=== PATIENT | male | born 1990 | race Caucasian/White ===

== ENCOUNTER → 2017-03-19 | Outpatient (CLI) | payer BC ==
[~2017-03-19] MED LIST: ACET325T14 PO; DIAZ5TAB PO; DOCU-30 PO; HYDR1TAB12 PO; LEVE500V6 PO; METH4TAB PO; NICO1PAT4 TD; OLAN5TAB9 PO; OXYC5TAB3 PO; POLY17PO5 PO; PREG200C PO; SENN1TAB7 PO
== END | disposition home or self-care (01) ==
LOC: RAD 15:06
PROVIDERS: ATTEND Neurological Surgery
DX: M41.85 Other forms of scoliosis, thoracolumbar region (principal)
CPT/HCPCS: 72082

== ENCOUNTER 2017-05-15 15:46 | Observation (INO) | payer BC, MEDICAID ==
[~2017-05-15] VITALS: Ht 152.4 cm; Wt 89.9 kg
[2017-05-15] MEDS ORDERED: LORazepam 1MG TABLET PO ONE (16:00)
[2017-05-15 16:40] LABS: BLOOD UREA NITROGEN 11 mg/dL (7-18)
[2017-05-15 16:41] LABS: ACETAMINOPHEN < 2 mcg/mL (10-30)
[2017-05-15] MEDS ORDERED: LORazepam 1MG TABLET ONE (16:42)
[2017-05-15 18:21] LABS: DAU SCREEN DISCLAIMER
[2017-05-15] MEDS ORDERED: ACETAMINOPHEN 325 MG TABLET PO PRN (21:30)
[2017-05-15] MEDS ORDERED: BISACODYL 10 MG SUPP PR PRN (21:30)
[2017-05-15] MEDS ORDERED: DOCUSATE 100 MG CAPSULE PO PRN (21:30)
[2017-05-15] MEDS ORDERED: POLYETHYLENE GLYCOL 17 GM PACKET PO PRN (21:30)
[2017-05-15] MEDS ORDERED: LEVETIRACETAM 500 MG TABLET PO SCH (21:30)
[2017-05-15 21:54] VITALS: BP 136/88
[2017-05-15] MEDS: OXYcodone IR 5MG TABLET PO PRN (22:13)
[2017-05-15] MEDS: PREGABALIN 200 MG CAPSULE PO SCH (22:28)
[2017-05-15] MEDS ORDERED: LEVETIRACETAM 500 MG TABLET PO ONE (23:00)
[2017-05-15] MEDS: DIAZEPAM 5 MG TABLET PO PRN (23:35)
[2017-05-16] MEDS: LORazepam 1MG TABLET PO PRN ×3 (00:49→17:16)
[2017-05-16] MEDS: PREGABALIN 200 MG CAPSULE PO SCH ×3 (07:57→20:10)
[2017-05-16] MEDS: LEVETIRACETAM 500 MG TABLET PO SCH ×2 (07:57→20:10)
[2017-05-16 08:22] VITALS: BP 129/84
[2017-05-16] MEDS: OXYcodone IR 5MG TABLET PO PRN ×2 (13:41→20:11)
[2017-05-16] MEDS ORDERED: FENTANYL 12 MCG PATCH TD SCH (14:00)
[2017-05-16] MEDS: DIAZEPAM 5 MG TABLET PO PRN (15:47)
[2017-05-16 19:42] VITALS: BP 123/85
[2017-05-19] MEDS ORDERED: FENTANYL REMOVE PATCH NOTE XX SCH (14:00)
== END 2017-05-16 22:30 ==
LOC: ED 18:47 → INTOOBSV 19:53 → EDIP 19:53 → 3E 21:37
PROVIDERS: ADMIT Internal Medicine; ATTEND Internal Medicine
DX: R45.851 Suicidal ideations (principal); F32.9 Major depressive disorder, single episode, unspecified; G40.909 Epilepsy, unspecified, not intractable, without status epilepticus; M54.9 Dorsalgia, unspecified; G89.29 Other chronic pain; E29.1 Testicular hypofunction; M79.7 Fibromyalgia; K21.9 Gastro-esophageal reflux disease without esophagitis; G43.909 Migraine, unspecified, not intractable, without status migrainosus; Z91.5 Personal history of self-harm; Z85.841 Personal history of malignant neoplasm of brain
CPT/HCPCS: 36415; 80048; 80307; 80329; 81003; 82040; 84439; 84443; 85025; 99285; G0378; G0480

== ENCOUNTER 2017-11-25 18:03 | Inpatient (IN) | payer MEDICAID ==
[~2017-11-25] VITALS: Ht 182.9 cm; Wt 83.7 kg
[~2017-11-25 18:03] MED LIST changes: +DOCU-131 PO; -DOCU-30 PO; +NICO-486 TD; -NICO1PAT4 TD
[2017-11-25 19:12] LABS: BASOPHILS # (AUTO) 0.03 x10^3/uL (0-0.1); BASOPHILS % (AUTO) 0 % (0-1); EOSINOPHILS # (AUTO) 0.26 x10^3/uL (0-0.4); EOSINOPHILS % (AUTO) 4 % (1-7); LYMPHOCYTES # (AUTO) 2.81 x10^3/uL (1-3.4); LYMPHOCYTES % (AUTO) 42 % (22-44); MD NO; MEAN CORPUSCULAR HEMOGLOBIN 29.8 pg (27.5-34.5); MEAN CORPUSCULAR HGB CONC 33.2 g/dL (33.2-36.2); MEAN CORPUSCULAR VOLUME 89.6 fL (81-97); MEAN PLATELET VOLUME 10.3 fL (7.4-10.4); MONOCYTES % (AUTO) 9 % (2-9); NEUTROPHILS # (AUTO) 3.05 x10^3/uL (1.8-6.8); NEUTROPHILS % (AUTO) 45 % (42-75); PLATELET COUNT 256 x10^3/uL (130-400); RED BLOOD COUNT 5.24 x10^6/uL (4.38-5.82)
[2017-11-25 19:19] LABS: ALANINE AMINOTRANSFERASE 25 U/L (12-78); ALBUMIN 4.5 g/dL (3.4-5.0); ANION GAP 8 mmol/L (5-15); CALCIUM 9.2 mg/dL (8.5-10.1); CHLORIDE 106 mmol/L (98-107); CREATININE 1.09 mg/dL (0.7-1.3)
[2017-11-25 19:21] LABS: ALKALINE PHOSPHATASE 81 U/L (45-117); BILIRUBIN,TOTAL 0.8 mg/dL (0.2-1.0); TOTAL PROTEIN 7.8 g/dL (6.4-8.2)
[2017-11-25] MEDS ORDERED: SODIUM CHLORIDE 0.9% 1,000 ML IV ONE (21:11)
[2017-11-25] MEDS ORDERED: SODIUM CHLORIDE FLUSH 10ML SYR IVF PRN (21:30)
[2017-11-25] MEDS ORDERED: ONDANSETRON 2MG/ML, 2ML IVPush PRN ×2 (21:30→23:00)
[2017-11-25] MEDS ORDERED: POLYETHYLENE GLYCOL 17 GM PACKET PO PRN (23:00)
[2017-11-25] MEDS ORDERED: ENALAPRILAT 1.25 MG/ML, 2ML IVPush PRN (23:00)
[2017-11-25] MEDS ORDERED: morphine SULFATE 10 MG/ML, 1ML IVPush PRN (23:00)
[2017-11-25] MEDS ORDERED: ACETAMINOPHEN 325 MG TABLET PO PRN ×2 (23:00→23:30)
[2017-11-25] MEDS ORDERED: hydrALAzine 20 MG/ML, 1ML IVPush PRN (23:00)
[2017-11-25] MEDS ORDERED: DOCUSATE 100 MG CAPSULE PO PRN (23:00)
[2017-11-25] MEDS ORDERED: LEVO50TA5 PO (23:05)
[2017-11-25] MEDS ORDERED: ONDA4TAB10 PO (23:05)
[2017-11-25] MEDS ORDERED: FLUO20CA19 PO (23:05)
[2017-11-25] MEDS ORDERED: TAMS-11 PO (23:05)
[2017-11-25] MEDS ORDERED: TRAZ50TA18 PO (23:05)
[2017-11-25] MEDS ORDERED: GABA300C10 PO (23:05)
[2017-11-25] MEDS ORDERED: LEVE100020 PO (23:05)
[2017-11-25] MEDS ORDERED: OXYC15TA PO (23:05)
[2017-11-25] MEDS ORDERED: ZOLP10TA PO (23:05)
[2017-11-25] MEDS ORDERED: RANI150T8 PO (23:05)
[2017-11-25] MEDS ORDERED: MELO7.5T5 PO (23:05)
[2017-11-25] MEDS ORDERED: TEMPLATE NON-FORMULARY MED. (Oxycodone Hcl** 10 MG) PO SCH (23:30)
[2017-11-25 23:38] LABS: HEMOGLOBIN A1C 5.2 % (4.2-6.3)
[2017-11-25 23:39] LABS: FREE T4 (FREE THYROXINE) 1.03 ng/dL (0.76-1.46); THYROID STIMULATING HORMONE 2.16 mIU/L (0.358-3.740)
[2017-11-25] MEDS: SODIUM CHLORIDE 0.9% 1,000 ML IV SCH (23:55)
[2017-11-26] MEDS: OXYcodone IR 5MG TABLET PO SCH ×4 (00:24→21:49)
[2017-11-26] MEDS: LEVETIRACETAM 500 MG TABLET PO SCH ×3 (00:24→21:49)
[2017-11-26] MEDS: GABAPENTIN 300 MG CAPSULE PO SCH ×4 (00:24→21:49)
[2017-11-26] MEDS: TRAZODONE 50MG TABLET PO SCH ×2 (01:17→21:49)
[2017-11-26] MEDS: ZOLPIDEM 10MG TABLET PO PRN ×2 (01:18→21:54)
[2017-11-26 01:59] VITALS: BP 115/67
[2017-11-26] MEDS: ONDANSETRON ODT 4 MG PO SCH ×4 (02:55→21:49)
[2017-11-26 03:02] LABS: MICROSCOPIC NOT IND
[2017-11-26 03:07] LABS: CULTURE INDICATED? NO
[2017-11-26 05:08] LABS: BASOPHILS # (AUTO) 0.03 x10^3/uL (0-0.1); BASOPHILS % (AUTO) 1 % (0-1); EOSINOPHILS % (AUTO) 4 % (1-7); LYMPHOCYTES # (AUTO) 2.75 x10^3/uL (1-3.4); LYMPHOCYTES % (AUTO) 54 % (22-44); MD NO; MEAN CORPUSCULAR HGB CONC 33.7 g/dL (33.2-36.2); MEAN CORPUSCULAR VOLUME 88.9 fL (81-97); MEAN PLATELET VOLUME 10.3 fL (7.4-10.4); MONOCYTES # (AUTO) 0.51 x10^3/uL (0.2-0.8); MONOCYTES % (AUTO) 10 % (2-9); NEUTROPHILS % (AUTO) 32 % (42-75); PLATELET COUNT 208 x10^3/uL (130-400); RED BLOOD COUNT 4.36 x10^6/uL (4.38-5.82); RED CELL DISTRIBUTION WIDTH 14.2 % (9.4-14.8)
[2017-11-26 05:21] LABS: CHLORIDE 109 mmol/L (98-107)
[2017-11-26 05:29] LABS: ALANINE AMINOTRANSFERASE 14 U/L (12-78); ALBUMIN 3.4 g/dL (3.4-5.0); ALKALINE PHOSPHATASE 67 U/L (45-117); ANION GAP 4 mmol/L (5-15); BILIRUBIN,TOTAL 0.4 mg/dL (0.2-1.0); CHOL/HDL RATIO 5.5; CHOLESTEROL, TOTAL 199 mg/dL (140-239); CREATININE 1.01 mg/dL (0.7-1.3); HDL CHOL % 18 % (26-37); HDL CHOLESTEROL (DIRECT) 36 mg/dL (40-60); LDL CHOLESTEROL,CALCULATED 139 mg/dL (54-169); LDL/HDL RATIO 3.9 (0.5-3.0); TOTAL PROTEIN 5.8 g/dL (6.4-8.2); TRIGLYCERIDES 122 mg/dL (50-200); VLDL CHOLESTEROL 24 mg/dL (0-25)
[2017-11-26 07:38] VITALS: BP 103/62
[2017-11-26] MEDS: SENNA/DOCUSATE TABLET PO SCH (08:09)
[2017-11-26] MEDS: MELOXICAM 15 MG TABLET PO SCH (08:10)
[2017-11-26] MEDS: TAMSULOSIN 0.4 MG CAP.ER.24H PO SCH (08:10)
[2017-11-26] MEDS: FLUOXETINE 20 MG CAPSULE PO SCH (08:10)
[2017-11-26] MEDS: LEVOTHYROXINE 50 MCG TABLET PO SCH (08:10)
[2017-11-26] MEDS ORDERED: OXYcodone IR 5MG TABLET PO SCH ×2 (09:00)
[2017-11-26] MEDS ORDERED: TRAZODONE 50MG TABLET PO SCH (09:00)
[2017-11-26] MEDS ORDERED: TEMPLATE NON-FORMULARY MED. (Levetiracetam** (Keppra**) 1,000 MG) PO SCH (09:00)
[2017-11-26] MEDS: SODIUM CHLORIDE 0.9% 1,000 ML IV SCH (10:13)
[2017-11-26 13:58] VITALS: BP 101/53
[2017-11-26] MEDS ORDERED: POTASSIUM CHLORIDE 20 MEQ TAB.ER.PRT PO ONE (16:00)
[2017-11-26 19:12] VITALS: BP 117/66
[2017-11-27 01:30] VITALS: BP 121/64
[2017-11-27] MEDS: ONDANSETRON ODT 4 MG PO SCH ×3 (03:00→16:34)
[2017-11-27 05:39] LABS: CHLORIDE 107 mmol/L (98-107)
[2017-11-27 05:46] LABS: ANION GAP 7 mmol/L (5-15)
[2017-11-27 08:00] VITALS: BP 118/67
[2017-11-27] MEDS: SENNA/DOCUSATE TABLET PO SCH (09:00)
[2017-11-27] MEDS: LEVETIRACETAM 500 MG TABLET PO SCH (11:05)
[2017-11-27] MEDS: GABAPENTIN 300 MG CAPSULE PO SCH ×2 (11:05→16:34)
[2017-11-27] MEDS: FLUOXETINE 20 MG CAPSULE PO SCH (11:05)
[2017-11-27] MEDS: TAMSULOSIN 0.4 MG CAP.ER.24H PO SCH (11:05)
[2017-11-27] MEDS: LEVOTHYROXINE 50 MCG TABLET PO SCH (11:06)
[2017-11-27] MEDS: OXYcodone IR 5MG TABLET PO SCH ×2 (11:06→16:00)
[2017-11-27] MEDS: MELOXICAM 15 MG TABLET PO SCH (11:07)
[2017-11-27 14:29] VITALS: BP 123/70
[2017-11-27] MEDS ORDERED: OXYcodone IR 5MG TABLET PO SCH (18:00)
== END 2017-11-27 18:45 | disposition home or self-care (01) | DRG 897 ==
LOC: ED 22:30 → EDIP 23:00 → 3NE 23:30
PROVIDERS: ADMIT Internal Medicine; ATTEND Internal Medicine
DX: F13.239 Sedative, hypnotic or anxiolytic dependence with withdrawal, unspecified (principal); R45.851 Suicidal ideations; G40.909 Epilepsy, unspecified, not intractable, without status epilepticus; E03.9 Hypothyroidism, unspecified; G89.29 Other chronic pain; M54.9 Dorsalgia, unspecified; M79.7 Fibromyalgia; K21.9 Gastro-esophageal reflux disease without esophagitis; G43.909 Migraine, unspecified, not intractable, without status migrainosus; F32.9 Major depressive disorder, single episode, unspecified; N40.0 Benign prostatic hyperplasia without lower urinary tract symptoms; Z88.8 Allergy status to other drugs, medicaments and biological substances
CPT/HCPCS: 36415; 80048; 80053; 80061; 81003; 83036; 83735; 84439; 84443; 85025; 99285; Q0162; J2270; J7030

== ENCOUNTER 2018-04-04 19:39 | Inpatient (IN) | payer MEDICAID ==
[~2018-04-04] VITALS: Ht 177.8 cm; Wt 76.5 kg
[~2018-04-04 19:39] MED LIST changes: +ACID1GRA3 PO; +FLUO20CA19 PO; +GABA300C10 PO; +LEVE100020 PO; +LEVO50TA5 PO; +MELO7.5T5 PO; +OMEP20TA62 PO; +ONDA4TAB10 PO; +OXYC15TA PO; +RANI150T23 PO; +TAMS-11 PO; +TRAZ50TA18 PO; +VALP250C PO; +ZOLP10TA PO
[2018-04-04] MEDS ORDERED: SODIUM CHLORIDE FLUSH 10ML SYR IVF ONE (20:00)
[2018-04-04] MEDS ORDERED: PLEASE ENTER HEIGHT AND WEIGHT MC SCH (20:00)
[2018-04-04] MEDS ORDERED: SODIUM CHLORIDE 0.9% 1,000ML IVBOLUS ONE ×3 (20:00→21:30)
[2018-04-04] MEDS ORDERED: LORazepam 2 MG/ML, 1ML IVPush ONE ×3 (20:00→22:00)
[2018-04-04 20:15] LABS: MEAN CORPUSCULAR HEMOGLOBIN 29.9 pg (27.5-34.5); MEAN CORPUSCULAR HGB CONC 32.8 g/dL (33.2-36.2); MEAN PLATELET VOLUME 10.4 fL (7.4-10.4); PLATELET COUNT 277 x10^3/uL (130-400); RED BLOOD COUNT 4.54 x10^6/uL (4.38-5.82); RED CELL DISTRIBUTION WIDTH 14.5 % (9.4-14.8)
[2018-04-04 20:23] LABS: ALBUMIN 3.7 g/dL (3.4-5.0); ANION GAP 28 mmol/L (5-15); CALCIUM 8.9 mg/dL (8.5-10.1); CHLORIDE 109 mmol/L (98-107)
[2018-04-04 20:27] LABS: ALANINE AMINOTRANSFERASE 25 U/L (12-78); ALKALINE PHOSPHATASE 110 U/L (45-117); BILIRUBIN,TOTAL 0.2 mg/dL (0.2-1.0); CREATINE KINASE, TOTAL 82 U/L (39-308); CREATININE 1.77 mg/dL (0.7-1.3); SALICYLATE LEVEL 2.2 mg/dL (2.8-20.0); TOTAL PROTEIN 6.9 g/dL (6.4-8.2)
[2018-04-04 20:32] LABS: ACETAMINOPHEN < 2 mcg/mL (10-30)
[2018-04-04 20:49] LABS: MD YES
[2018-04-04 20:50] LABS: <RBC MORPHOLOGY> NORMAL; BAND#(MANUAL) 0.68 x10^3/uL; BANDS%(MANUAL) 3 % (0-7); EOS#(MANUAL) 0.45 x10^3/uL (0.0-0.4); EOS% (MANUAL) 2 % (1-7); LYMPH#(MANUAL) 2.71 x10^3/uL (1-3.4); LYMPHS% (MANUAL) 12 % (22-44); MONOS#(MANUAL) 1.13 x10^3/uL (0.3-2.7); MONOS% (MANUAL) 5 % (2-9); SEG#(MANUAL) 17.63 x10^3/uL (1.8-6.8); SEGS% (MANUAL) 78 % (42-75)
[2018-04-04 20:51] LABS: <PLATELET ESTIMATE> ADEQUATE; <PLT MORPHOLOGY> NORMAL PLT MORPH
[2018-04-04] MEDS ORDERED: LORazepam 2 MG/ML, 1ML ONE (21:42)
[2018-04-04 21:47] LABS: AMPHETAMINE SCREEN, URINE Negative (Negative); BARBITURATE SCREEN, URINE Negative (Negative); BENZODIAZEPINE SCREEN, URINE Negative (Negative); CANNABINOID SCREEN, URINE Negative (Negative); COCAINE SCREEN, URINE Negative (Negative); METHADONE SCREEN, URINE Negative (Negative); OPIATE SCREEN, URINE Negative (Negative)
[2018-04-04] MEDS: LORazepam 2 MG/ML, 1ML IVPush ONE ×2 (22:00→22:29)
[2018-04-04] MEDS ORDERED: VALPROATE SODIUM 1,500 MG in SODIUM CHLORIDE 0.9% 100 ML IV ONE (22:00)
[2018-04-05] MEDS ORDERED: VALP250C PO (00:12)
[2018-04-05] MEDS ORDERED: FLOMAX (00:12)
[2018-04-05] MEDS ORDERED: ONDANSETRON 2MG/ML, 2ML IV PRN (01:00)
[2018-04-05] MEDS: HEPARIN 5,000 UNITS/ML, 1ML SQ SCH ×3 (01:00→21:47)
[2018-04-05] MEDS ORDERED: DOCUSATE 100 MG CAPSULE PO PRN (01:00)
[2018-04-05] MEDS ORDERED: LORazepam 2 MG/ML, 1ML ONE (01:06)
[2018-04-05] MEDS: LORazepam 2 MG/ML, 1ML IV PRN ×2 (01:11→05:37)
[2018-04-05] MEDS: D5%-0.45NACL+KCL 20MEQ 1,000 ML IV SCH ×2 (02:35→13:27)
[2018-04-05 04:15] VITALS: BP 109/48
[2018-04-05 04:19] VITALS: BP 109/48
[2018-04-05 04:42] LABS: MEAN CORPUSCULAR HEMOGLOBIN 29.8 pg (27.5-34.5); MEAN CORPUSCULAR HGB CONC 33.5 g/dL (33.2-36.2); MEAN PLATELET VOLUME 9.9 fL (7.4-10.4); PLATELET COUNT 177 x10^3/uL (130-400); RED BLOOD COUNT 3.89 x10^6/uL (4.38-5.82); RED CELL DISTRIBUTION WIDTH 14.6 % (9.4-14.8)
[2018-04-05 04:51] LABS: ALBUMIN 2.9 g/dL (3.4-5.0); ANION GAP 8 mmol/L (5-15); CALCIUM 7.2 mg/dL (8.5-10.1); CHLORIDE 117 mmol/L (98-107)
[2018-04-05 04:55] LABS: MD YES
[2018-04-05 04:57] LABS: ALANINE AMINOTRANSFERASE 20 U/L (12-78); ALKALINE PHOSPHATASE 77 U/L (45-117); BAND#(MANUAL) 0.12 x10^3/uL; BANDS%(MANUAL) 1 % (0-7); BASOS#(MANUAL) 0.12 x10^3/uL (0-0.1); BASOS% (MANUAL) 1 % (0-1); BILIRUBIN,TOTAL 0.7 mg/dL (0.2-1.0); CREATINE KINASE, TOTAL 244 U/L (39-308); CREATININE 1.05 mg/dL (0.7-1.3); EOS#(MANUAL) 0.12 x10^3/uL (0.0-0.4); EOS% (MANUAL) 1 % (1-7); LYMPHS% (MANUAL) 21 % (22-44); MONOS#(MANUAL) 0.74 x10^3/uL (0.3-2.7); MONOS% (MANUAL) 6 % (2-9); SEG#(MANUAL) 8.68 x10^3/uL (1.8-6.8); SEGS% (MANUAL) 70 % (42-75); TOTAL PROTEIN 5.6 g/dL (6.4-8.2)
[2018-04-05 04:58] LABS: <PLATELET ESTIMATE> ADEQUATE; <PLT MORPHOLOGY> NORMAL PLT MORPH; <RBC MORPHOLOGY> NORMAL
[2018-04-05] MEDS ORDERED: POTASSIUM CHLORIDE 40 MEQ in SODIUM CHLORIDE 0.9% 500 ML IV ONE (05:30)
[2018-04-05] MEDS ORDERED: LORazepam 2 MG/ML, 1ML IVPush PRN (06:00)
[2018-04-05 10:19] LABS: MICROSCOPIC INDICATED
[2018-04-05 10:24] LABS: CULTURE INDICATED? NO
[2018-04-05] MEDS ORDERED: SUMATRIPTAN 100 MG TABLET PO PRN (13:00)
[2018-04-05] MEDS: TAMSULOSIN 0.4 MG CAP.ER.24H PO SCH (13:20)
[2018-04-05] MEDS: LAMOTRIGINE 25 MG TABLET PO SCH ×2 (13:20→21:48)
[2018-04-05] MEDS: OXYcodone IR 5MG TABLET PO PRN ×2 (13:21→22:00)
[2018-04-05] MEDS: GABAPENTIN 300 MG CAPSULE PO SCH ×2 (16:39→21:47)
[2018-04-05 20:31] VITALS: BP 120/77
[2018-04-05] MEDS ORDERED: LAMOTRIGINE 25 MG TABLET PO SCH (21:00)
[2018-04-05] MEDS: VALPROIC ACID 250 MG CAPSULE PO SCH (21:47)
[2018-04-06] MEDS: D5%-0.45NACL+KCL 20MEQ 1,000 ML IV SCH ×3 (00:58→20:11)
[2018-04-06 01:35] VITALS: BP 111/61
[2018-04-06] MEDS: HEPARIN 5,000 UNITS/ML, 1ML SQ SCH ×3 (05:08→20:12)
[2018-04-06] MEDS: LEVOTHYROXINE 50 MCG TABLET PO SCH (05:08)
[2018-04-06] MEDS: OXYcodone IR 5MG TABLET PO PRN ×4 (05:17→23:59)
[2018-04-06 05:18] LABS: ALANINE AMINOTRANSFERASE 19 U/L (12-78); ALBUMIN 2.7 g/dL (3.4-5.0); ANION GAP 6 mmol/L (5-15); CALCIUM 7.8 mg/dL (8.5-10.1); CHLORIDE 112 mmol/L (98-107); CREATININE 0.66 mg/dL (0.7-1.3)
[2018-04-06 05:25] LABS: BASOPHILS # (AUTO) 0.02 x10^3/uL (0-0.1); BASOPHILS % (AUTO) 0 % (0-1); EOSINOPHILS # (AUTO) 0.09 x10^3/uL (0-0.4); EOSINOPHILS % (AUTO) 1 % (1-7); LYMPHOCYTES # (AUTO) 1.89 x10^3/uL (1-3.4); LYMPHOCYTES % (AUTO) 28 % (22-44); MD NO; MEAN CORPUSCULAR HEMOGLOBIN 30.5 pg (27.5-34.5); MEAN CORPUSCULAR VOLUME 89.8 fL (81-97); MEAN PLATELET VOLUME 10.3 fL (7.4-10.4); MONOCYTES % (AUTO) 7 % (2-9); NEUTROPHILS # (AUTO) 4.34 x10^3/uL (1.8-6.8); NEUTROPHILS % (AUTO) 64 % (42-75); PLATELET COUNT 148 x10^3/uL (130-400); RED BLOOD COUNT 3.52 x10^6/uL (4.38-5.82)
[2018-04-06 05:52] LABS: ALKALINE PHOSPHATASE 74 U/L (45-117); BILIRUBIN,TOTAL 0.2 mg/dL (0.2-1.0); THYROID STIMULATING HORMONE 0.117 mIU/L (0.358-3.740); TOTAL PROTEIN 5.4 g/dL (6.4-8.2)
[2018-04-06 07:14] VITALS: BP_SYST 120; BP_SYST 97; BP_DIAS 68; BP_DIAS 73
[2018-04-06] MEDS: LAMOTRIGINE 25 MG TABLET PO SCH ×2 (08:16→20:11)
[2018-04-06] MEDS: FLUOXETINE HCL 20 MG CAPSULE PO SCH (08:16)
[2018-04-06] MEDS: TAMSULOSIN 0.4 MG CAP.ER.24H PO SCH (08:16)
[2018-04-06] MEDS: VALPROIC ACID 250 MG CAPSULE PO SCH ×2 (08:16→20:11)
[2018-04-06] MEDS: OMEPRAZOLE 20 MG CAPSULE.DR PO SCH (08:16)
[2018-04-06] MEDS: GABAPENTIN 300 MG CAPSULE PO SCH ×3 (08:16→20:11)
[2018-04-06] MEDS ORDERED: GADOBUTROL 10 MMOL/10 ML VIAL ONE (10:44)
[2018-04-06] MEDS ORDERED: OXYcodone 5 MG/5 ML ORAL.SOL UDC ONE (11:28)
[2018-04-06 13:44] VITALS: BP 121/70
[2018-04-06 20:58] VITALS: BP 126/73
[2018-04-07 00:20] VITALS: BP 118/70
[2018-04-07] MEDS: LEVOTHYROXINE 50 MCG TABLET PO SCH (05:08)
[2018-04-07] MEDS: D5%-0.45NACL+KCL 20MEQ 1,000 ML IV SCH ×2 (05:08→14:00)
[2018-04-07] MEDS: HEPARIN 5,000 UNITS/ML, 1ML SQ SCH ×2 (05:08→13:07)
[2018-04-07 05:26] LABS: BASOPHILS # (AUTO) 0.05 x10^3/uL (0-0.1); BASOPHILS % (AUTO) 1 % (0-1); EOSINOPHILS # (AUTO) 0.18 x10^3/uL (0-0.4); EOSINOPHILS % (AUTO) 3 % (1-7); LYMPHOCYTES # (AUTO) 2.39 x10^3/uL (1-3.4); LYMPHOCYTES % (AUTO) 38 % (22-44); MD NO; MEAN CORPUSCULAR HEMOGLOBIN 30.1 pg (27.5-34.5); MEAN CORPUSCULAR HGB CONC 33.9 g/dL (33.2-36.2); MEAN CORPUSCULAR VOLUME 88.9 fL (81-97); MEAN PLATELET VOLUME 10.4 fL (7.4-10.4); MONOCYTES # (AUTO) 0.68 x10^3/uL (0.2-0.8); MONOCYTES % (AUTO) 11 % (2-9); NEUTROPHILS # (AUTO) 3.01 x10^3/uL (1.8-6.8); NEUTROPHILS % (AUTO) 48 % (42-75); PLATELET COUNT 189 x10^3/uL (130-400); RED BLOOD COUNT 4.02 x10^6/uL (4.38-5.82); RED CELL DISTRIBUTION WIDTH 15.1 % (9.4-14.8)
[2018-04-07 05:40] LABS: ALANINE AMINOTRANSFERASE 16 U/L (12-78); ALBUMIN 2.8 g/dL (3.4-5.0); ANION GAP 9 mmol/L (5-15); CALCIUM 8.8 mg/dL (8.5-10.1); CHLORIDE 106 mmol/L (98-107); CREATININE 0.72 mg/dL (0.7-1.3)
[2018-04-07 05:42] LABS: ALKALINE PHOSPHATASE 77 U/L (45-117); BILIRUBIN,TOTAL 0.4 mg/dL (0.2-1.0); TOTAL PROTEIN 5.8 g/dL (6.4-8.2)
[2018-04-07] MEDS: OXYcodone IR 5MG TABLET PO PRN ×2 (07:22→13:07)
[2018-04-07 08:03] VITALS: BP 133/79
[2018-04-07] MEDS: LAMOTRIGINE 25 MG TABLET PO SCH (08:26)
[2018-04-07] MEDS: VALPROIC ACID 250 MG CAPSULE PO SCH (08:26)
[2018-04-07] MEDS: TAMSULOSIN 0.4 MG CAP.ER.24H PO SCH (08:26)
[2018-04-07] MEDS: FLUOXETINE HCL 20 MG CAPSULE PO SCH (08:26)
[2018-04-07] MEDS: OMEPRAZOLE 20 MG CAPSULE.DR PO SCH (08:26)
[2018-04-07] MEDS: GABAPENTIN 300 MG CAPSULE PO SCH ×2 (08:26→15:01)
[2018-04-07] MEDS ORDERED: OMEP20TA62 PO (13:29)
[2018-04-07] MEDS ORDERED: FLUO20CA19 PO (13:29)
[2018-04-07] MEDS ORDERED: OXYC15TA PO (13:29)
[2018-04-07] MEDS ORDERED: TAMS-11 PO (13:29)
[2018-04-07] MEDS ORDERED: ONDA4TAB10 PO (13:29)
[2018-04-07] MEDS ORDERED: MELO7.5T5 PO (13:29)
[2018-04-07] MEDS ORDERED: ACID1GRA3 PO (13:29)
[2018-04-07] MEDS ORDERED: GABA300C10 PO (13:29)
[2018-04-07] MEDS ORDERED: LAMO25TA PO (13:39)
[2018-04-07 14:11] VITALS: BP 134/79
== END 2018-04-07 15:05 | disposition home or self-care (01) | DRG 101 ==
LOC: EDBD → MERGE 19:39 → ED 22:03 → EDIP 04-05 00:52 → CCU 04-05 02:18 → 4EST 04-05 17:13
PROVIDERS: ADMIT Family Medicine; ATTEND Family Medicine
DX: G40.901 Epilepsy, unspecified, not intractable, with status epilepticus (principal); N17.9 Acute kidney failure, unspecified; E87.2 Acidosis; M41.9 Scoliosis, unspecified; E03.9 Hypothyroidism, unspecified; F17.200 Nicotine dependence, unspecified, uncomplicated; D35.2 Benign neoplasm of pituitary gland; F32.9 Major depressive disorder, single episode, unspecified; G43.909 Migraine, unspecified, not intractable, without status migrainosus; G89.29 Other chronic pain; K21.9 Gastro-esophageal reflux disease without esophagitis; M79.7 Fibromyalgia; N40.0 Benign prostatic hyperplasia without lower urinary tract symptoms; Z79.899 Other long term (current) drug therapy; Z83.49 Family history of other endocrine, nutritional and metabolic diseases; Z91.14 Patient's other noncompliance with medication regimen; Z88.8 Allergy status to other drugs, medicaments and biological substances; Z91.018 Allergy to other foods; Z71.6 Tobacco abuse counseling
CPT/HCPCS: 36415; 70553; 71045; 80053; 80164; 80307; 80329; 81001; 82140; 82550; 82962; 83605; 84146; 84439; 84443; 85025; 87081; 93005; 95816; 96361; 96365; 96366; 96375; 96376; A9585; J1644; J3480; G0480; J2060; J7030; J7040